=== PATIENT | female | born 2000 | race African-American/Black ===

== ENCOUNTER 2020-07-14 08:42 | Emergency (ER) | payer OTHER ==
[~2020-07-14] VITALS: Ht 165.1 cm; Wt 87.1 kg
[2020-07-14] MEDS ORDERED: MUPIROCIN1 G1 TOP (12:08)
[2020-07-14] MEDS ORDERED: BACTRIM DS TAB1 EACH PO (12:08)
[2020-07-14] MEDS ORDERED: HIBICLENS118 ML TOP (12:08)
== END 2020-07-14 12:16 | disposition home or self-care (01) ==
LOC: ER 08:42
DX: L02.415 Cutaneous abscess of right lower limb (principal); B95.61 Methicillin susceptible Staphylococcus aureus infection as the cause of diseases classified elsewhere

== ENCOUNTER 2021-01-13 07:16 | Emergency (ER) | payer OTHER ==
[~2021-01-13] VITALS: Ht 167.6 cm; Wt 94.3 kg
[~2021-01-13 07:16] MED LIST: BACTRIM DS TAB1 EACH PO; HIBICLENS118 ML TOP; MUPIROCIN1 G1 TOP
[2021-01-13] MEDS ORDERED: SINGULAIR10 MG (07:47)
[2021-01-13] MEDS ORDERED: HIBICLENS118 ML TOP (08:57)
[2021-01-13] MEDS ORDERED: MUPIROCIN1 G1 TOP (08:57)
[2021-01-13] MEDS ORDERED: BACTRIM DS TAB1 EACH PO (08:57)
== END 2021-01-13 09:09 | disposition home or self-care (01) ==
LOC: ER 07:16
DX: L73.8 Other specified follicular disorders (principal)

== ENCOUNTER 2021-03-08 11:47 | Emergency (ER) | payer OTHER ==
[~2021-03-08] VITALS: Ht 165.1 cm; Wt 95.7 kg
[~2021-03-08 11:47] MED LIST changes: +SINGULAIR10 MG
[2021-03-08] MEDS ORDERED: MOMETASONE FURO15 G2 TOP ×2 (12:50→12:52)
== END 2021-03-08 13:00 | disposition home or self-care (01) ==
LOC: ER 11:47
DX: H10.89 Other conjunctivitis (principal)

== ENCOUNTER 2021-06-01 11:48 | Emergency (ER) | payer OTHER ==
[~2021-06-01] VITALS: Ht 165.1 cm; Wt 94.8 kg
[~2021-06-01 11:48] MED LIST changes: +MOMETASONE FURO15 G2 TOP
[2021-06-01] MEDS ORDERED: PEPCID AC20 MG PO (16:49)
== END 2021-06-01 17:04 ==
LOC: ER 11:48
DX: R11.10 Vomiting, unspecified (principal)

== ENCOUNTER 2021-07-17 07:40 | Emergency (ER) | payer OTHER ==
[~2021-07-17] VITALS: Ht 165.1 cm; Wt 93.0 kg
[~2021-07-17 07:40] MED LIST changes: +PEPCID AC20 MG PO
== END 2021-07-17 09:41 | disposition home or self-care (01) ==
LOC: ER 07:40
DX: L73.8 Other specified follicular disorders (principal); U07.1 COVID-19

== ENCOUNTER 2022-08-17 18:21 | Emergency (ER) | payer OTHER ==
[~2022-08-17] VITALS: Ht 165.1 cm; Wt 89.4 kg
== END 2022-08-17 20:06 | disposition home or self-care (01) ==
LOC: ER 18:21
DX: M25.571 Pain in right ankle and joints of right foot (principal)

== ENCOUNTER → 2022-10-03 | Emergency (ER) | payer OTHER | END | disposition home or self-care (01) | LOC: ER 09:36 | DX: R19.7 Diarrhea, unspecified (principal); Z20.828 Contact with and (suspected) exposure to other viral communicable diseases ==

== ENCOUNTER 2023-09-02 22:37 | Emergency (ER) | payer OTHER ==
[~2023-09-02] VITALS: Ht 165.1 cm; Wt 84.4 kg
[2023-09-03 05:49] LABS: HEMATOCRIT 34.2 % (36.0-45.00); HEMOGLOBIN 10.8 g/dL (12.0-15.00); MEAN CELL VOLUME 70.6 fL (80.00-100.00); MEAN CORPUSCULAR HEMOGLOBIN 22.2 pg (27.00-32.0); MEAN CORPUSCULAR HGB CONC 31.5 g/dl (32.0-36.0); PLATELET COUNT 250 K/uL (150-450); RED BLOOD COUNT 4.84 M/uL (4.00-6.00)
== END 2023-09-03 09:13 | disposition home or self-care (01) ==
LOC: ER 22:37
DX: K52.89 Other specified noninfective gastroenteritis and colitis (principal)

== ENCOUNTER 2024-11-13 09:02 | Emergency (ER) | payer OTHER ==
[~2024-11-13] VITALS: Ht 165.1 cm; Wt 89.4 kg
[2024-11-13] MEDS ORDERED: 0.9 % SODIUM CHLORIDE 500 ML IV STA (09:35)
[2024-11-13] MEDS ORDERED: PROMETHAZINE HCL 50 MG/ML AMPUL IV STA (09:37)
[2024-11-13] MEDS ORDERED: FAMOtidine 10 MG/ML (4ML VIAL) IV STA (09:38)
[2024-11-13] MEDS ORDERED: PROMETHAZINE HCL 50 MG/ML AMPUL IM ONE (09:45)
[2024-11-13] MEDS ORDERED: FAMOTIDINE/PF 20 MG/2 ML VIAL ONE (09:45)
[2024-11-13 10:29] LABS: HEMOGLOBIN 13.5 g/dL (12.0-15.00); MEAN CELL VOLUME 79.5 fL (80.00-100.00); MEAN CORPUSCULAR HEMOGLOBIN 26.1 pg (27.00-32.0); MEAN CORPUSCULAR HGB CONC 32.8 g/dl (32.0-36.0); PLATELET COUNT 198 K/uL (150-450); RED BLOOD COUNT 5.16 M/uL (4.00-6.00)
[2024-11-13] MEDS ORDERED: MEPERIDINE HCL 25 MG/ML AMPUL IM STA (11:06)
[2024-11-13 12:39] LABS: CALCIUM 8.5 mg/dL (8.5-10.1); CREATININE SERUM 0.64 mg/dL (0.55-1.02); GFR 113.06; POTASSIUM 4.18 mEq/L (3.5-5.1)
== END 2024-11-13 14:12 | disposition home or self-care (01) ==
LOC: ER 09:04
PROVIDERS: General Practice
DX: K52.89 Other specified noninfective gastroenteritis and colitis (principal)
CPT/HCPCS: 36415; 96365; 96366; 99283; J2175; J3490; J7042